=== PATIENT | female | born 2000 | race Hispanic/Latino ===

== ENCOUNTER 2025-04-04 14:59 | Emergency (ER) | payer BC ==
[~2025-04-04] VITALS: Ht 157.5 cm; Wt 93.2 kg
[2025-04-04 15:05] VITALS: PULSE 104; RESP 20; TEMP 98.6; O2SAT 97
[2025-04-04] MEDS ORDERED: IBUPROFEN600 MG PO (15:18)
[2025-04-04] MEDS ORDERED: TYLENOL325 MG PO (15:18)
[2025-04-04] MEDS: ACETAMINOPHEN 325 MG TAB PO ONE (15:24)
[2025-04-04] MEDS: IBUPROFEN 200 MG TAB PO ONE (15:24)
== END 2025-04-04 16:05 | disposition home or self-care (01) ==
LOC: FSED 15:05
DX: S93.492A Sprain of other ligament of left ankle, initial encounter (principal); X50.1XXA Overexertion from prolonged static or awkward postures, initial encounter; Y93.01 Activity, walking, marching and hiking; Y92.89 Other specified places as the place of occurrence of the external cause
CPT/HCPCS: 99284